=== PATIENT | female | born 1975 | race Caucasian/White ===

== ENCOUNTER 2023-02-02 10:36 | Emergency (ER) | payer BC, SELFPAY ==
[2023-02-02 10:43] VITALS: BP 109/70; PULSE 83; RESP 18; TEMP 36.9; O2SAT 97; BMI 29.5
--- NOTE | 2023-02-02 11:16 | ED_ITS ---
HPI - General Adult General Time Seen by Provider: 11:16 Date Seen: 02/02/23 Chief complaint: Ear/Nose/Throat Problem Stated complaint: Ringing in L ear Time Seen by Provider: 02/02/23 11:10 Source: patient and RN notes reviewed Mode of arrival: ambulatory Limitations: no limitations History of Present Illness HPI narrative: Patient is a 47-year-old female that is coming in with abrupt onset of tinnitus in her left ear around 3:00 a.m.. It woke her from sleep. She states it was almost like an alarm going off. It is buzzing or humming, she feels like it feels external but she feels it in her left ear only. It does not have a pulsatile or high-pitched character. Initially this morning she thought that that was maybe all she could hear in that left ear but she can hear me talk. She is hearing sound out of the left ear. There is no visual changes. She can swallow without any difficulty, no pain with swallowing. No other neurologic symptoms of her extremities. No numbness tingling in her face. She has a friend who is a physician in [facility] and was going to go there but the friend thought she might need emergent MRI. She was sick earlier in November, no recent illness, no fevers chills. Related Data Previous Rx's Medication Instructions Recorded prednisone 10 mg tablet 10 mg PO BID 7 days #14 tabs 02/02/23 valacyclovir 1 gram tablet 1,000 mg PO TID #21 tabs 02/02/23 Allergies Allergy/AdvReac Type Severity Reaction Status Date / Time Sulfa (Sulfonamide Allergy Hives Verified 02/02/23 10:43 Antibiotics) Review of Systems Status of ROS: Reports: 6 or more systems reviewed and unremarkable except as noted in History and below [facility] Social History Smoking Status: Never smoker Do you use any of these nicotine containing products: None Second hand tobacco smoke exposure: No How often do you have a drink containing alcohol: monthly or less AUDIT-C Alcohol total score: 1 Non-prescribed substance use: denies use Exam Const: Vital Signs, click to edit/add: Vital Signs - 24 hr 02/02/23 10:43 Temperature 98.4 F Pulse Rate [Right Pulse Oximeter] 83 Respiratory Rate 18 Blood Pressure [Ri ght Upper Arm] 109/70 Pulse Oximetry 97 Oxygen Delivery Me thod Room Air 47-year-old female that is alert interac tive no apparent distress but looks uncomfortable. She seems to have hyperacusis. When I do finger rub in front of the left ear it is something she pulls away from, has normal reaction in the right ear. Certainly hears in left ear but seems to be somewhat painful. I feel no preauricular, postauricular or neck adenopathy. Neck seems to be supple. Pupils equal round reactive to light extraocular muscles intact TMs canals bilaterally are normal. Has normal symmetrical facial function, oropharyngeal exam is normal. Speech is normal. CV regular rate and rhythm no murmur. Ambulatory in the ED of her own accord. Definitely seems to be uncomfortable with her symptoms. Documenting provider has reviewed patient's vital signs: yes Course Course Hospital Course: Reviewed with patient that I was going to discuss with our ENT 1st and foremost. I will leave her room now, proceed to calling him immediately. Reevaluation(s) Reevaluation #1: Have reviewed with patient our ENT recommendations. She did decline MRI today which I think he is appropriate. Have discussed the antiviral medication with Valtrex and steroid. Reviewed that he did recommend antiviral in case this could be an early zoster presentation or shingles. She has no clinical indication other than pain at this time. Steroids are for inflammatory changes. I will make sure she has his phone number through [facility] to get scheduled for follow-up with him. Time: 11:42 Consultations Consultation #1: Spoke with Dr. Gordon regarding patient. With the information that I have provided him, he did not feel that she needed an MRI, would be done if she had not recovered in 6 weeks. He did recommend antiviral and steroids. Confirmed with him that he would do this 60 mg daily of steroids if she tolerated. He did state if patient really wanted an MRI, it could be done today but he did not feel was necessary. Time: 11:31 Vital Signs Vital signs: Initial Vital Signs Temperature 98.4 F 02/02/23 10:43 Temperature Source Temporal Artery Scan 02/02/23 10:43 Pulse Rate 83 02/02/23 10:43 Respiratory Rate 18 02/02/23 10:43 Blood Pressure 109/70 02/02/23 10:43 Blood Pressure Mean 83 02/02/23 10:43 Blood Pressure Position Sitting 02/02/23 10:43 Pulse Oximetry 97 02/02/23 10:43 Oxygen Delivery Method Room Air 02/02/23 10:43 Vital Signs Temperature 98.4 F 02/02/23 10:43 Pulse Rate 83 02/02/23 10:43 Respiratory Rate 18 02/02/23 10:43 Blood Pressure 109/70 02/02/23 10:43 Pulse Oximetry 97 02/02/23 10:43 Oxygen Delivery Method Room Air 02/02/23 10:43 Temperature 98.4 F 02/02/23 10:43 Pulse Rate 83 02/02/23 10:43 Respiratory Rate 18 02/02/23 10:43 Blood Pressure 109/70 02/02/23 10:43 Pulse Oximetry 97 02/02/23 10:43 Oxygen Delivery Method Room Air 02/02/23 10:43 Critical Care Time Critical Care Time Critical Care Time: No Discharge Plan Discharge Clinical Impression: Left-sided tinnitus Patient Disposition: Home, Self-Care Condition: Stable Instructions: Tinnitus (ED) Additional Instructions: Start the Valtrex and prednisone, take as prescribed. Recommend taking prednisone with food to help protect her stomach. If you do not tolerate the 30 mg twice daily, can decrease to 20 mg twice daily. Schedule follow-up with ENT Dr. Gordon in, [facility]. He does go to other sites besides [facility] but they control his schedule. Phone number is [phone]. May need to use fanned her background noise to help minimize your symptoms. Prescriptions: New valacyclovir 1 gram tablet 1,000 mg PO TID Qty: 21 0RF prednisone 10 mg tablet 10 mg PO BID 7 Days Qty: 14 0RF Rx Instructions: Take 30 mg or 3 tablets twice daily with food. If you are not tolerating this high of a dose, can go down to 20 mg or 2 tablets twice a day but do not exceed 7 days treatment. Stand Alone Forms: [employer] Info Instructions
== END 2023-02-02 12:03 | disposition home or self-care (01) ==
LOC: ED 11:48
PROVIDERS: Emergency Provider Family Medicine
DX: H93.12 Tinnitus, left ear (principal)
CPT/HCPCS: 99282; 99283